=== PATIENT | female | born 1960 | race Two or more races ===

== ENCOUNTER 2024-05-24 18:22 | Inpatient (IN) | payer MEDICAID ==
[~2024-05-24] VITALS: Ht 152.4 cm; Wt 135.2 kg
[2024-05-24 20:37] LABS: BASOPHILS # (AUTO) 0.1 K/uL (0.0-0.2); BASOPHILS % (AUTO) 0.7 % (0.0-2.0); EOSINOPHILS # (AUTO) 0.2 K/uL (0.0-0.7); EOSINOPHILS % (AUTO) 2.1 % (0.0-6.0); HEMATOCRIT 41 % (33-45); HEMOGLOBIN 13.8 g/dL (11.5-14.8); LYMPHOCYTES % (AUTO) 43.5 % (20.0-44.0); MEAN CORPUSCULAR HEMOGLOBIN 27 PG (26.0-33.0); MEAN CORPUSCULAR HGB CONC 33 g/dl (31.0-36.0); MEAN CORPUSCULAR VOLUME 82 fL (82-100); MONOCYTES # (AUTO) 0.6 K/uL (0.1-1.30); MONOCYTES % (AUTO) 6.4 % (2.0-12.0); NEUTROPHILS # (AUTO) 4.3 K/uL (1.8-8.9); NEUTROPHILS % (AUTO) 47.3 % (43.0-81.0); PLATELET COUNT (AUTO) 332 K/uL (150-450); RED BLOOD CELL COUNT(AUTO) 5.05 MIL/uL (4.0-5.2); RED CELL DISTRIBUTION WIDTH 14.3 % (11.5-15.0); WHITE BLOOD COUNT (AUTO) 9.2 K/uL (4.3-11.0)
[2024-05-24 21:01] LABS: CALCIUM, SERUM 9.7 mg/dL (8.5-10.1); CARBON DIOXIDE 28 mmol/L (21-32); CHLORIDE 105 mmol/L (98-107); CREATININE 0.7 mg/dL (0.6-1.3); GLUCOSE 127 mg/dL (74-106); POTASSIUM 4.1 mmol/L (3.5-5.1); SODIUM SERUM 138 mmol/L (136-145); UREA NITROGEN, BLOOD 13 mg/dL (7-18)
[2024-05-24] MEDS: ASPIRIN 325 MG TABLET PO ONE (21:34)
[2024-05-25] VITALS: BP 153/86; TEMP 98.2; O2SAT 97
[2024-05-25] MEDS ORDERED: MAGNESIUM HYDROXIDE 30 ML UDC PO PRN (00:30)
[2024-05-25] MEDS ORDERED: ZOLPIDEM TARTRATE 5 MG TABLET PO PRN (00:30)
[2024-05-25] MEDS ORDERED: MAG HYDROX/AL HYDROX/SIMETH 30 ML UDC PO PRN (00:30)
[2024-05-25] MEDS ORDERED: ONDANSETRON HCL/PF 4 MG/2 ML VIAL IVP PRN (00:30)
[2024-05-25] MEDS ORDERED: Z GUARD REMEDY 4 OZ OINT TP PRN (00:30)
[2024-05-25] MEDS: ENOXAPARIN SODIUM 40 MG/0.4 ML DISP.SYRIN SQ SCH (00:52)
[2024-05-25] MEDS: ACETAMINOPHEN 325 MG TABLET PO PRN (02:33)
[2024-05-25 04:00] VITALS: BP 160/95; TEMP 98; O2SAT 100
[2024-05-25 06:57] LABS: BASOPHILS % (AUTO) 0.4 % (0.0-2.0); EOSINOPHILS # (AUTO) 0.2 K/uL (0.0-0.7); HEMATOCRIT 38 % (33-45); HEMOGLOBIN 12.7 g/dL (11.5-14.8); LYMPHOCYTES # (AUTO) 4.4 K/uL (0.8-4.8); LYMPHOCYTES % (AUTO) 52.1 % (20.0-44.0); MEAN CORPUSCULAR HEMOGLOBIN 28 PG (26.0-33.0); MEAN CORPUSCULAR HGB CONC 34 g/dl (31.0-36.0); MEAN CORPUSCULAR VOLUME 82 fL (82-100); MONOCYTES # (AUTO) 0.5 K/uL (0.1-1.30); MONOCYTES % (AUTO) 5.8 % (2.0-12.0); NEUTROPHILS # (AUTO) 3.3 K/uL (1.8-8.9); NEUTROPHILS % (AUTO) 39.7 % (43.0-81.0); PLATELET COUNT (AUTO) 290 K/uL (150-450); RED CELL DISTRIBUTION WIDTH 14.1 % (11.5-15.0); WHITE BLOOD COUNT (AUTO) 8.4 K/uL (4.3-11.0)
[2024-05-25 07:24] LABS: ALBUMIN 2.7 g/dL (3.4-5.0); BILIRUBIN,DIRECT 0.1 mg/dL (0.0-0.2); BILIRUBIN,TOTAL 0.4 mg/dL (0.2-1.0); CREATININE 0.5 mg/dL (0.6-1.3); PHOSPHORUS 2.9 mg/dL (2.5-4.9); POTASSIUM 3.6 mmol/L (3.5-5.1); TOTAL PROTEIN, SERUM 6.4 g/dL (6.4-8.2)
[2024-05-25] MEDS: PANTOPRAZOLE 40 MG TABLET.DR PO SCH (07:50)
[2024-05-25 07:55] LABS: THYROID STIMULATING HORMONE 0.11 uIU/mL (0.358-3.74)
[2024-05-25 08:00] VITALS: BP 150/86; TEMP 97.6; O2SAT 95
[2024-05-25] MEDS: LOSARTAN POTASSIUM 50 MG TABLET PO SCH (08:56)
[2024-05-25] MEDS ORDERED: DEXTROSE 50%-WATER 50 ML DISP.SYRIN IV PRN (10:30)
[2024-05-25] MEDS: BLOOD SUGAR DIAGNOSTIC 1 EACH STRIP IN SCH (11:49)
[2024-05-25] MEDS: INSULIN REGULAR, HUMAN 100 UNIT/ML 3 ML VIAL SQ PRN (11:49)
[2024-05-25 12:00] VITALS: BP 169/87; TEMP 97.5; O2SAT 96
[2024-05-25] MEDS: hydrALAZINE HCL IV 20 MG VIAL IV PRN (12:33)
[2024-05-25] MEDS: METOPROLOL TARTRATE 25 MG TABLET PO SCH (14:30)
[2024-05-25 15:49] LABS: INR 1.01 (0.91-1.10); PARTIAL THROMBOPLASTIN TIME 30.4 SEC (24.3-34.3); PROTHROMBIN TIME 10.7 SECS (9.2-11.1)
[2024-05-25 16:00] VITALS: BP 153/76; TEMP 97.2; O2SAT 96
[2024-05-25 20:00] VITALS: BP 159/88; TEMP 98.1; O2SAT 96
[2024-05-25] MEDS: ATORVASTATIN 40 MG TABLET PO SCH (22:29)
[2024-05-25] MEDS: NITROGLYCERIN 0.4 MG/TAB BOTTLE SL PRN (23:07)
[2024-05-26] VITALS: BP 136/82; TEMP 98.5; O2SAT 96
[2024-05-26 04:00] VITALS: BP 133/68; TEMP 98.1; O2SAT 98
[2024-05-26 08:00] VITALS: BP 170/96; TEMP 98.2; O2SAT 96
[2024-05-26] MEDS: ASPIRIN 81 MG TAB.CHEW PO SCH (08:24)
[2024-05-26] MEDS ORDERED: IV SET PRIMARY PUMP SET 1 EA INFUS.SET MC ONE (10:07)
[2024-05-26] MEDS ORDERED: IV NS 0.9% 1,000 ML ONE (10:07)
[2024-05-26] MEDS ORDERED: IODIXANOL 150 ML IV ONE (10:08)
[2024-05-26] MEDS ORDERED: LIDOCAINE HCL/MPF 1% 30 ML VIAL IJ ONE (10:08)
[2024-05-26] MEDS ORDERED: NITROGLYCERIN IN 5 % DEXTROSE 250 ML IV ONE (10:08)
[2024-05-26] MEDS ORDERED: FENTANYL PF 100MCG/2ML AMPUL ONE (10:21)
[2024-05-26] MEDS ORDERED: MIDAZOLAM HCL 2 MG/2ML VIAL ONE (10:21)
[2024-05-26] MEDS ORDERED: hydrALAZINE HCL IV 20 MG VIAL ONE (11:01)
[2024-05-26 12:00] VITALS: BP 111/69; TEMP 98.4; O2SAT 96
[2024-05-26] MEDS ORDERED: MORPHINE SULFATE INJ 2 MG/ML DISP.SYRIN IV PRN (13:00)
[2024-05-26 16:00] VITALS: BP 132/64; TEMP 98.1; O2SAT 92
[2024-05-26 20:00] VITALS: BP 137/74; TEMP 98.1; O2SAT 93
[2024-05-27] VITALS: BP 131/73; TEMP 97.9; O2SAT 93
[2024-05-27 04:00] VITALS: BP 128/67; TEMP 97.8; O2SAT 95
[2024-05-27 08:00] VITALS: BP 143/68; TEMP 97.7; O2SAT 92
[2024-05-27 12:00] VITALS: BP 119/69; TEMP 97.9; O2SAT 94
[2024-05-27 16:00] VITALS: BP 118/65; TEMP 98.2; O2SAT 94
[2024-05-27 20:00] VITALS: BP 140/73; TEMP 98.1; O2SAT 95
[2024-05-27] MEDS: NITROGLYCERIN 0.4 MG/TAB BOTTLE SL PRN (22:43)
[2024-05-27] MEDS: HYDROCODONE/APAP 5/325MG TABLET PO PRN (23:51)
[2024-05-28] VITALS: BP 123/63; TEMP 98.4; O2SAT 94
[2024-05-28 04:00] VITALS: BP 140/78; TEMP 97.7; O2SAT 96
[2024-05-28 07:13] LABS: CALCIUM, SERUM 8.9 mg/dL (8.5-10.1); CREATININE 0.6 mg/dL (0.6-1.3)
[2024-05-28 08:00] VITALS: BP 139/74; TEMP 97.9; O2SAT 94
[2024-05-28 09:31] LABS: BASOPHILS % (AUTO) 0.5 % (0.0-2.0); EOSINOPHILS # (AUTO) 0.1 K/uL (0.0-0.7); EOSINOPHILS % (AUTO) 0.8 % (0.0-6.0); HEMATOCRIT 43 % (33-45); HEMOGLOBIN 14.3 g/dL (11.5-14.8); LYMPHOCYTES # (AUTO) 2.7 K/uL (0.8-4.8); LYMPHOCYTES % (AUTO) 31.3 % (20.0-44.0); MEAN CORPUSCULAR HEMOGLOBIN 28 PG (26.0-33.0); MEAN CORPUSCULAR HGB CONC 33 g/dl (31.0-36.0); MEAN CORPUSCULAR VOLUME 83 fL (82-100); MONOCYTES # (AUTO) 0.6 K/uL (0.1-1.30); MONOCYTES % (AUTO) 6.7 % (2.0-12.0); NEUTROPHILS # (AUTO) 5.2 K/uL (1.8-8.9); NEUTROPHILS % (AUTO) 60.7 % (43.0-81.0); PLATELET COUNT (AUTO) 315 K/uL (150-450); RED BLOOD CELL COUNT(AUTO) 5.21 MIL/uL (4.0-5.2); RED CELL DISTRIBUTION WIDTH 14.3 % (11.5-15.0); WHITE BLOOD COUNT (AUTO) 8.6 K/uL (4.3-11.0)
[2024-05-28] MEDS ORDERED: MORPHINE SULFATE INJ 2 MG/ML DISP.SYRIN IV PRN (11:30)
[2024-05-28 12:00] VITALS: BP 133/71; TEMP 98.2
[2024-05-28 16:00] VITALS: BP 138/69; TEMP 97.7
[2024-05-28 20:00] VITALS: BP 148/81; TEMP 97.1; O2SAT 98
[2024-05-29] VITALS: BP 151/75; TEMP 97.2; O2SAT 94
[2024-05-29 04:00] VITALS: BP 143/81; TEMP 98.1; O2SAT 94
[2024-05-29] MEDS: MORPHINE SULFATE INJ 2 MG/ML DISP.SYRIN IV ONE (06:25)
[2024-05-29 06:38] VITALS: BP 130/75; TEMP 98; O2SAT 98
[2024-05-29 06:47] LABS: BASOPHILS # (AUTO) 0.1 K/uL (0.0-0.2); BASOPHILS % (AUTO) 0.5 % (0.0-2.0); EOSINOPHILS # (AUTO) 0.2 K/uL (0.0-0.7); EOSINOPHILS % (AUTO) 1.9 % (0.0-6.0); HEMATOCRIT 40 % (33-45); HEMOGLOBIN 13.8 g/dL (11.5-14.8); LYMPHOCYTES # (AUTO) 3.9 K/uL (0.8-4.8); LYMPHOCYTES % (AUTO) 39.7 % (20.0-44.0); MEAN CORPUSCULAR HEMOGLOBIN 28 PG (26.0-33.0); MEAN CORPUSCULAR HGB CONC 34 g/dl (31.0-36.0); MEAN CORPUSCULAR VOLUME 82 fL (82-100); MONOCYTES # (AUTO) 0.7 K/uL (0.1-1.30); MONOCYTES % (AUTO) 7.4 % (2.0-12.0); NEUTROPHILS % (AUTO) 50.5 % (43.0-81.0); PLATELET COUNT (AUTO) 304 K/uL (150-450); RED BLOOD CELL COUNT(AUTO) 4.92 MIL/uL (4.0-5.2); RED CELL DISTRIBUTION WIDTH 14.3 % (11.5-15.0); WHITE BLOOD COUNT (AUTO) 9.9 K/uL (4.3-11.0)
[2024-05-29 07:02] LABS: CALCIUM, SERUM 9.2 mg/dL (8.5-10.1); CREATININE 0.7 mg/dL (0.6-1.3); POTASSIUM 3.7 mmol/L (3.5-5.1)
[2024-05-29 08:00] VITALS: BP 124/69; TEMP 97.9; O2SAT 99
[2024-05-29 08:29] VITALS: BP 124/69
== END 2024-05-29 12:58 | disposition short-term general hospital (02) | DRG 190 ==
LOC: ER 18:28 → TELE1 22:34
PROVIDERS: ADMIT Nurse Practitioner Family; ATTEND Nurse Practitioner Acute Care
PROC: 4A023N7 Measurement of Cardiac Sampling and Pressure, Left Heart, Percutaneous Approach (ICD-10-PCS; principal; 2024-05-26)
PROC: B211YZZ Fluoroscopy of Multiple Coronary Arteries using Other Contrast (ICD-10-PCS; 2024-05-26)
PROC: B34HZZZ Ultrasonography of Right Upper Extremity Arteries (ICD-10-PCS; 2024-05-26)
DX: I25.10 Atherosclerotic heart disease of native coronary artery without angina pectoris (principal); I21.A1 Myocardial infarction type 2; E44.1 Mild protein-calorie malnutrition; I50.22 Chronic systolic (congestive) heart failure; I11.0 Hypertensive heart disease with heart failure; E11.9 Type 2 diabetes mellitus without complications; E88.09 Other disorders of plasma-protein metabolism, not elsewhere classified; Z68.31 Body mass index [BMI] 31.0-31.9, adult; E66.9 Obesity, unspecified; E78.5 Hyperlipidemia, unspecified; E07.9 Disorder of thyroid, unspecified
CPT/HCPCS: 36415; 71045-TC; 80048-TC; 80061-TC; 80076-TC; 82550-TC; 82962-TC; 83735-TC; 83880; 84100-TC; 84443-TC; 84480; 84484-TC; 85025-TC; 85610-TC; 85730-TC; 86403-TC; 87070-TC; 93307-TC; 93880-TC; 94799-TC; A4223; G0378; J0360; J1644; J1650; J1815; J2250; J2270; J3010; J3490; J7030; Q9967